=== PATIENT | female | born 1960 | race Caucasian/White ===

== ENCOUNTER → 2018-06-08 16:03 | Outpatient (CLI) | payer OTHER, SELFPAY ==
[2018-06-08 17:08] LABS: Absolute Lymphocyte Count 1.79 X10^3/ul (0.83-4.51); Absolute Neutrophil Count 5.6 X10^3/uL (2.0-7.7); Basophil# 0.03 X10^3/uL; Basophil% 0.3 % (0-1); Eosinophil# 0.36 X10^3/uL; Eosinophils% 4.1 % (0-5); Hematocrit 37.9 % (37-47); Lymphocyte # 1.79 X10^3/ul (4.0); Lymphocyte % 20.5 % (19-41); Mean Corp Hgb Conc 31.7 g/gl (32-36); Mean Corpuscular Hgb 29.5 pg (27.0-32.0); Mean Corpuscular Volume 93.1 fL (81-99); Mean Platelet Vol. 8.8 fl (6.2-12.0); Monocyte# 0.93 X10^3/uL; Monocyte% 10.7 % (0-10); Neutrophil % 64.3 % (47-70); Platelet Count 375 K/mm3 (150-450); RBC Distribution Width CV 13.7 % (11.6-14.6); RBC Distribution Width SD 46.1 fl (35.1-43.9); Red Blood Count 4.07 M/mm3 (4.2-5.4); White Blood Count 8.7 K/mm3 (4.4-11.0)
[2018-06-08 17:11] LABS: POSITIVE COUNT NO; POSITIVE DIFFERENTIAL NO; POSITIVE MORPHOLOGY NO
[2018-06-08 17:22] LABS: Erythrocyte Sedimentation Rate 82 mm/hr (0-30)
[2018-06-08 18:13] LABS: AUTO B FLUID DILUENT BKGD CT WBC <0.1 RBC <0.01 (W<.1,R<.01); RBC /Synovial Fluid 0.043 10^6/uL (0); Viscosity / Synovial Fluid Sl. Viscous (HIGH)
[2018-06-08 18:15] LABS: Color / Synovial Fluid Pink (Pale Yellow); Source / Synovial Fluid LEFT KNEE
[2018-06-08 18:16] LABS: Appearance /Synovial Fluid Turbid (CLEAR)
[2018-06-08 20:13] LABS: Lymph 2 %; Neutrophil 98 % (0-25)
[2018-06-08 20:15] LABS: Body Fluid QC Type(s) BF1Q
[2018-06-09 15:36] LABS: Pathologist Comment Reviewed
== END ==
PROVIDERS: Visit Provider Specialist
DX: T84.84XA Pain due to internal orthopedic prosthetic devices, implants and grafts, initial encounter (principal); Z96.652 Presence of left artificial knee joint
CPT/HCPCS: 36415; 85025; 85652; 86140; 87015; 87070; 87075; 87077; 87101; 87116; 87205; 87206; 89050; 89051

== ENCOUNTER 2018-06-23 11:24 | Inpatient (IN) | payer SELFPAY ==
[2018-06-16 11:31] VITALS: BP 130/65; PULSE 80; RESP 18; TEMP 36.4; O2SAT 94; BMI 42.5
--- NOTE | 2018-06-16 11:41 | EKG12_ITS ---
Test Reason : Blood Pressure : / mmHG Vent. Rate : 086 BPM Atrial Rate : 086 BPM P-R Int : 190 ms QRS Dur : 072 ms QT Int : 344 ms P-R-T Axes : 034 -03 002 degrees QTc Int : 411 ms Normal sinus rhythm Septal infarct , age undetermined , cannot be excluded Inferior infarct , age undetermined , cannot be excluded Abnormal ECG Confirmed by RUFINA MAXWELL, OLESYA ([id number]), science editor WARD DORANTES ([id number]) on 06/19/2018 1:24:53 PM Referred By: Cnoner Downey Confirmed By:OLESYA ALMARAZ MD
[2018-06-23] VITALS (15 sets, daily range): BP systolic 137–184; BP diastolic 67–94; PULSE 74–102; RESP 12–18; TEMP 36–36.6; O2SAT 91–99; BMI 42.5
[2018-06-23] MEDS: oxyCODONE HCl Cr 10 MG Tablet PO (11:58)
[2018-06-23] MEDS: Acetaminophen 500 MG Tablet 1000 MG PO ×2 (11:58→21:04)
[2018-06-23] MEDS: Lactated Ringers 1,000 ML 999 ML IV ×2 (12:18→16:30)
[2018-06-23] MEDS: Cefazolin 2 GM in 0.9% Normal Saline 100 ML IV (14:59)
[2018-06-23] MEDS: Vancomycin IV 1,000 MG/20 ML Vial 6000 MG OPERA.SITE (15:05)
--- NOTE | 2018-06-23 16:03 | PCM.OPRPT ---
Report of Operation Date of Procedure: 06/23/18 Pre-Operative Diagnosis: Left infected total knee arthroplasty, Propionibacterium Post-Operative Diagnosis: Left infected total knee arthroplasty, Propionibacterium Surgery/Procedure Performed:: 1. Explant placement of antibiotic spacer left knee. 2. Placement of nonbiodegradable antibiotic delivery system. Description of Surgical Findings:: Florid synovitis, cloudy fluid. Grossly loose implants. crotch piece baster: Michael Fleming Type of Anesthesia:: General Anesthesiologist: Martín Ngo Special Medications: 2 g Ancef after cultures were taken, 4.8 mg tobramycin, 2 g Ancef and 6 g vancomycin in cement mixture Estimated Blood Loss (mL): 150 Fluids Replaced: 1400 ml Description of Procedure: 57-year-old female with cultures positive with aspiration lab consistent with infection of the left knee. Some benefits of a two-stage revision were discussed with patient including but not limited to blood loss, DVTs, PEs, neurovascular damage, place, the risk of anesthesia including loss of life. We also discussed possibility of not clearing infection and needing revision spacer and possible amputation. Patient demonstrates an understanding was able to sign informed consent. Procedure: On the date of the procedure patient's left leg was marked in the preoperative area. Patient was taken back to the operating room with her transfer to the table in supine position. Anesthesia to control the C-spine airway remained controlled throughout the remainder of the procedure. Anesthesia was administered and all bony prominences identified well-padded. Tourniquet was placed in the left upper thigh. Left leg was then prepped in a sterile fashion with surgeon scrubbed. Upon entering the room the left leg was draped in a sterile working fashion. She was marked out using the previous incision and extending it proximally and distally 1 cm. Incision was made at the skin subcu tissue fat down the fascia. Once identified the medial retinaculum and made appropriate full-thickness flaps medially and laterally we made our arthrotomy. Once we entered the joint there was florid synovitis. Synovium was aggressively debrided and a complete synovectomy was performed starting in the medial gutter in the suprapatellar pouch and the lateral gutter. Suprapatellar pouch synovium was sent for culture. At this time the knee was flexed up and a bone tamp was used to remove the femoral component which was easily removed because it was loose. We then directed our attention towards the tibia where this was removed with a bone tamp again due to loosening of the implant. Membrane from behind both implants was sent for culture. At this time a cleanup cut was made on the distal femur and femoral cuts and proximal tibia. Posterior knee was debrided of synovium as well. Once a complete synovectomy was performed we directed our attention towards debridement of the bone. Bone tunnels were debrided in tibia was reamed to 11 mm and femur was reamed to 12 millimeters. Once this was performed and we had a peripherally debrided the knee we trialed the implants. The medial tibia was appropriate as well as a medium femur. At this time cement was mixed on the back table for a dowel favian around a Lim favian. While we are doing this informing the favian for the femur, the wound was copiously irrigated out with 6 L of normal saline. Once the favian was formed was placed in the femoral canal. The cement used to coat the favian was mixed with vancomycin, Ancef and tobramycin cement antibiotics. This is an intramedullary device designed to deliver antibiotics. At this time the remainder of the cemented antibiotics were mixed. The distal femur and proximal tibia implants were cemented into place and he was placed in extension. Wound was cultured up normal saline. The arthrotomy was then closed. #1 PDS was used to close the arthrotomy. Deep tissue layer was closed with #1 Vicryl skin layer was closed with 2-0 Vicryl and skin travis. At this time the knee could been from 0-30? with a spacer in place. Sterile dressing was placed. Prior to cementing the implants into place we did let the tourniquet down and use an aqua managed to obtain hemostasis. Once the dressing was placed patient was awakened by anesthesia and transferred to the PACU for recovery in stable condition. Operative plan: Infectious disease will be consulted. I started the patient on vancomycin and Ancef for the next 24 hours. She has a culture positive for Propionibacterium. We will plan on 6 weeks of antibiotics at a minimum with antibiotics being directed by infectious disease. I placed an order for the PICC line. Once antibiotics are set up patient will be able to be discharged home. My physician senior office support assistant sosa was a vital part of this case. He was important in appropriate retraction during the case, and protection of soft tissues during bony cuts. His intimate knowledge of the case and my steps aided in safe and expedient completion of the procedure as well as appropriate position of the leg during the case. He was also vital in assisting with closure under my direct supervision. Grafts/Implants Used: Ostial remedies knee spacer medium femur, medial tibia - Complications None - Admit VTE Documentation VTE Present on Admission: No VTE Mechan Device Prophylaxis: SCD's, Thigh High JULIENNE Braxton VTE Pharm Prophylaxis ordered?: Yes
--- NOTE | 2018-06-23 16:35 | RAD_ITS ---
STUDY: X-RAY - LEFT KNEE REASON FOR EXAM: Female, 57 years old. Postoperative, left knee. TECHNIQUE: 2 view(s) of the knee. COMPARISON: None. FINDINGS: Total arthroplasty. The prosthetic components appear to be appropriately seated and articulated. Expected postsurgical changes in the stranding soft tissues. RAD/Knee 1 or 2 Views IMPRESSION: Appropriate postsurgical features. Correlate with operative report. Electronically Signed: Trav Bojorquez, at 16:54 EDT Tel , Service support ,
[2018-06-23] MEDS: Scopolamine 1mg/72hr Patch 1 PATCH TD (16:55)
[2018-06-23 18:00] LABS: Creatinine, Serum 0.63 mg/dL (0.55-1.02); EST Glomerular Filtration Rate 103 mL/min (>60); Est Glom Filt Rate - Afr Amer 125 mL/min (>60); Estimated Creatinine Clearance 99.51 ml/min
[2018-06-23] MEDS: Vancomycin IV 1,000 MG/200 ML BAG 200 MG IV (21:00)
[2018-06-23] MEDS: Senna/Docusate Sodium 1 Tablet 2 TABLET PO (21:05)
[2018-06-23] MEDS: Ondansetron 4 MG/2 ML Vial IV (21:38)
--- NOTE | 2018-06-23 22:25 | PCM.RX.CS ---
Consult Pharmacy has been consulted to manage selected antiobiotic: Vancomycin Type of Consult: New start Suspected Infection: Other Prior Doses of Antibiotics Received/Current Regimen: Medications Vancomycin HCl 750 mg/ Sodium (Chloride) 265 mls @ 265 mls/hr IV Q12H QUAN Discontinued Medications Vancomycin HCl (Vancomycin) 1,000 mg in 200 mls @ 200 mls/hr IV X1 ONE Stop: 06/23/18 17:59 Last Admin: 06/23/18 21:00 Dose: 200 mls/hr Labs: Creatinine 0.63 mg/dL (0.55-1.02) 06/23/18 17:15 Est GFR (MDRD) Af Amer 125 mL/min (>60) 06/23/18 17:15 Est GFR (MDRD) Non-Af 103 mL/min (>60) 06/23/18 17:15 Microbiology: Microbiology 06/16/18 11:48 Nasal Secretion Nasal Screen MRSA/MSSA (RAMIREZ) - Final Weight used for dosin.2 kg Estimated Creatinine Clearance: 99 Goal Trough: 10-15 mcg/mL Pharmacy Plan for Drug Dosing: Pharmacy Service will continue to monitor and adjust dosing as required. Follow-Up Labs: Trough Vancomycin Labs to be done on [date and time ordered]: 06/25/2018 @2787
[2018-06-23] MEDS: Cefazolin 1 GM/50 ML BAG IV (23:03)
[2018-06-23] MEDS: Lactated Ringers 1,000 ML 125 ML IV (23:03)
[2018-06-24 02:56] VITALS: BP 157/80; PULSE 71; RESP 16; TEMP 36.7; O2SAT 96
[2018-06-24] MEDS: Ketorolac 15 MG/ML Vial IV (04:14)
[2018-06-24] MEDS: Acetaminophen 500 MG Tablet 1000 MG PO ×3 (05:46→21:23)
[2018-06-24] MEDS: Rivaroxaban 10 MG Tablet PO (05:47)
[2018-06-24] MEDS: Cefazolin 1 GM/50 ML BAG IV (06:02)
[2018-06-24 06:09] LABS: Hematocrit 31.6 % (37-47); Hemoglobin 10.2 g/dl (12.0-15.0); Mean Corp Hgb Conc 32.3 g/gl (32-36); Mean Corpuscular Hgb 30.5 pg (27.0-32.0); Mean Corpuscular Volume 94.6 fL (81-99); Mean Platelet Vol. 8.7 fl (6.2-12.0); Platelet Count 322 K/mm3 (150-450); RBC Distribution Width CV 12.9 % (11.6-14.6); RBC Distribution Width SD 42.8 fl (35.1-43.9); Red Blood Count 3.34 M/mm3 (4.2-5.4); White Blood Count 10.3 K/mm3 (4.4-11.0)
[2018-06-24 06:12] LABS: Anion Gap 10 (5-15); BUN 8 mg/dL (7-18); BUN/Creat Ratio 10.5 RATIO (10-20); Calcium,Total 8.3 mg/dL (8.5-10.1); Chloride 102 mmol/L (98-107); Creatinine, Serum 0.76 mg/dL (0.55-1.02); EST Glomerular Filtration Rate 83 mL/min (>60); Est Glom Filt Rate - Afr Amer 101 mL/min (>60); Estimated Creatinine Clearance 82.49 ml/min; Glucose 209 mg/dL (74-106); Potassium 4.1 mmol/L (3.5-5.1); Sodium Level 138 mmol/L (136-145)
[2018-06-24 06:14] LABS: Scan Indicated on CBC? Y/N NO
--- NOTE | 2018-06-24 07:35 | PCM.PN.ORT ---
Subjective: Patient resting in bed upon examination. No adverse overnight events. Patient denies any CP, SOB, dizziness/lightheadedness, or N/V. Pain is controlled on medications. I & D has been consulted for management of antibiotics. Patient will require PICC line and IV antibiotics for 6 weeks. Patient states she wishes to try to go home when ready. Will have case management help with discharge plans. Objective: VSS, Afebrile Patient able to PF/DF actively Dressing is C/D/I Sensation intact to saphenous, sural, superficial/deep peroneal, and tibial distribution bilateral Negative homans bilateral - Physical Exam General: Alert, Oriented x3, Cooperative, No apparent distress Vital Signs Temp Pulse Resp BP Pulse Ox 98.1 F 71 16 157/80 H 96 06/24/18 02:56 06/24/18 02:56 06/24/18 02:56 06/24/18 02:56 06/24/18 02:56 Oxygen Flow Rate (L/min) 3 Oxygen Delivery Method Room Air Weight: 63.219 kg Body Mass Index (BMI) 42.5 Intake and Output for Last 24 Hours 06/22/18 06/23/18 06/24/18 23:59 23:59 23:59 Intake Total 2500 / 2500 1148 / 1148 Output Total 900 / 900 Balance 2500 / 2500 248 / 248 Laboratory Tests Past 24 Hrs 06/23/18 06/24/18 06/24/18 17:15 05:40 05:40 WBC 10.3 RBC 3.34 L Hgb 10.2 L Hct 31.6 L MCV 94.6 MCH 30.5 MCHC 32.3 RDW 12.9 RDW Differential 42.8 Plt Count 322 MPV 8.7 Sodium 138 Potassium 4.1 Chloride 102 Carbon Dioxide 26.0 Anion Gap 10 BUN 8 Creatinine 0.63 0.76 Estim Creat Clear Calc 99.51 82.49 Est GFR (MDRD) Af Amer 125 101 Est GFR (MDRD) Non-Af 103 83 BUN/Creatinine Ratio 10.5 Glucose 209 H Calcium 8.3 L Medical Necessity - Tobacco Use Smoking Status: Never smoker Assessment/Plan 1. s/p explant and placement of antibiotic spacer left knee POD#1 2. Continue pain medications: Tylenol and Oxyir 3. DVT Prophylaxis: xarelto 4. PT/OT: PWB 25% left lower extremity 5. H & H: 10.2/31.6, asymptomatic 6. Infectious Disease Consult: will manage antibiotics, plan is for PICC line and 6 weeks IV antibiotics. Cultures are currently pending. 7. Encouraged Incentive spirometry 8. Disposition: Plan is for IV antibiotics and placement of PICC line. Case management will need to be involved to help with discharge planning. Patient wishes to try and go home when medically ready.
[2018-06-24] MEDS: Multivitamins,Therapeutic Tablet 1 TABLET PO (08:38)
[2018-06-24 08:40] VITALS: BP 145/72; PULSE 78; RESP 18; TEMP 36.8; O2SAT 95
[2018-06-24] MEDS: Senna/Docusate Sodium 1 Tablet 2 TABLET PO ×2 (10:34→21:23)
[2018-06-24] MEDS: Famotidine 20 MG Tablet PO (10:34)
[2018-06-24] MEDS: 0.9% NaCl Peripheral Flush Adult/Peds IV (10:34)
[2018-06-24 10:45] VITALS: PULSE 76
[2018-06-24] MEDS: oxyCODONE 5 MG Tablet PO ×3 (10:48→19:37)
--- NOTE | 2018-06-24 11:55 | CON.PCM_ITS ---
Problem List (1) Infected prosthetic knee joint Status: Acute Reason for Consult: pji Consulted by: Dr. Downey History of Present Illness: The patient is a 57 year old F with L TKA in 11/2017 who has had pain with weight bearing since the surgery. No redness, warmth, drainage. Mild chills in the spring. No recent abx. Had aspiration 06/08 which showed purulence, but neg cxs. Taken for spacer placement 06/23, pain about 5/10 now. Full ROS performed and neg except as noted above. - Medical History Surgical History: reviewed Allergies/Adverse Reactions: Allergies No Known Allergies Allergy (Verified 06/16/18 11:16) Home Medications: Ambulatory Orders Medication Instructions Recorded Multivitamin [Daily Multiple 1 each PO DAILY 04/25/17 Vitamin] Acetaminophen [Tylenol] 1,000 mg PO Q8 06/16/18 - Social History Tobacco Use: non-smoker Vital Signs Temp Pulse Resp BP Pulse Ox 98.3 F 76 18 145/72 H 95 06/24/18 08:40 06/24/18 10:45 06/24/18 08:40 06/24/18 08:40 06/24/18 08:40 Oxygen Flow Rate (L/min) 3 Oxygen Delivery Method Room Air Weight: 63.219 kg Body Mass Index (BMI) 42.5 Microbiology Past 72 Hours 06/23/18 14:57 Wound Culture - Preliminary Tissue - Knee No growth-Final to follow 06/23/18 14:57 Wound Culture - Preliminary Tissue - Knee No growth-Final to follow 06/23/18 14:57 Wound Culture - Preliminary Tissue - Knee No growth-Final to follow Laboratory Tests Past 24 Hrs 06/23/18 06/24/18 06/24/18 17:15 05:40 05:40 WBC 10.3 RBC 3.34 L Hgb 10.2 L Hct 31.6 L MCV 94.6 MCH 30.5 MCHC 32.3 RDW 12.9 RDW Differential 42.8 Plt Count 322 MPV 8.7 Sodium 138 Potassium 4.1 Chloride 102 Carbon Dioxide 26.0 Anion Gap 10 BUN 8 Creatinine 0.63 0.76 Estim Creat Clear Calc 99.51 82.49 Est GFR (MDRD) Af Amer 125 101 Est GFR (MDRD) Non-Af 103 83 BUN/Creatinine Ratio 10.5 Glucose 209 H Calcium 8.3 L - Other Studies Radiology: [] Other Studies: [] Route of nutrition/ use of supplements: [] Nutritional Intake: [] IV Site: [] Rodriguez Catheter: [] - Assessment/Plan Antibiotics: [] Assessment/Plan: [] L knee PJI - had aspiration done 06/08, cx neg at 14 days. Per ortho note, pt with P.acnes, but no (+) cxs in [place] or [place] system that I can see. On vanc. Now s/p spacer placement 06/23. Plan on picc and 6 week course of iv vanc. Will follow, thank you, d/w case monitor. Wrote rx for labs and abx with home health to be arranged.
--- NOTE | 2018-06-24 13:00 | CASEMGMT ---
SEE JOSH BARNES ASSESS LINK: D/C plan: Home with [facility]--custodial for IV antibiotics. Intro role to JOSH BARNES. Pt sitting up in recliner chair. Awake/alert/oriented. Several family members in room with pt. Pt reports she lives with her sister. Pt wishes to discharge home with [facility] for IV antibiotics. Pt reports she had to assist another sister with administering IV antibiotics in the past and is agreeable to learning how to administer them to herself. Pt also reports she has a lot of family support. Pt states has no preference of [facility] agency. Discussed Adv Directives with pt & pt voices interest in talking with [facility]. Pt given Adv Directive packet and referral made with [facility]. No DME needs identified. CM to to follow for discharge planning needs that may arise. Cesar CARDOSON JOSH BARNES
--- NOTE | 2018-06-24 14:58 | CASEMGMT ---
JOSH BARNES NOTE: Clinical Referral faxed to [facility] requesting they complete Home Health Referral ([facility] cannot accept pt). Call to [facility] to notify of referral. Pt has [facility] Benefits. Copy of certification card included in packet. Call back information given for Allan MORENO CM today, and Sanju MORENO CM for , 06/25/18. Allan CARDOSON M
[2018-06-24 15:36] VITALS: BP 140/59; PULSE 80; RESP 18; TEMP 37; O2SAT 94
[2018-06-24 21:04] VITALS: BP 135/51; PULSE 83; RESP 16; TEMP 36.9; O2SAT 96
[2018-06-25] MEDS: oxyCODONE 5 MG Tablet PO ×4 (00:12→13:52)
[2018-06-25 05:00] VITALS: BP 157/89; PULSE 91; RESP 91; TEMP 36.3; O2SAT 95
[2018-06-25] MEDS: Acetaminophen 500 MG Tablet 1000 MG PO ×2 (05:15→13:51)
[2018-06-25] MEDS: Rivaroxaban 10 MG Tablet PO (05:16)
[2018-06-25] MEDS: 0.9% NaCl Peripheral Flush Adult/Peds IV ×3 (05:59→13:55)
[2018-06-25 06:31] LABS: Hematocrit 33.3 % (37-47); Hemoglobin 10.6 g/dl (12.0-15.0); Mean Corp Hgb Conc 31.8 g/gl (32-36); Mean Corpuscular Hgb 30.4 pg (27.0-32.0); Mean Corpuscular Volume 95.4 fL (81-99); Mean Platelet Vol. 8.6 fl (6.2-12.0); Platelet Count 353 K/mm3 (150-450); RBC Distribution Width CV 13.4 % (11.6-14.6); RBC Distribution Width SD 44.3 fl (35.1-43.9); Red Blood Count 3.49 M/mm3 (4.2-5.4); White Blood Count 10.4 K/mm3 (4.4-11.0)
[2018-06-25 06:37] LABS: Scan Indicated on CBC? Y/N NO
--- NOTE | 2018-06-25 09:06 | PCM.PN.ORT ---
Patient Problems: Active and Suspected Problems Infected prosthetic knee joint (Acute) Subjective: The patient was evaluated while in physical therapy. Patient denies any chest pain, shortness of breath, dizziness, lightheadedness, nausea or vomiting, or calf pain. Pain is controlled on medications. No adverse overnight events. Infectious disease has seen the patient and patient will use IV vancomycin for 6 weeks. Patient will be following up with infectious disease to follow antibiotics. Plan is for patient to get home health in case management is working on discharge planning. Objective: Vital signs stable and afebrile. Patient is able to plantarflex and dorsiflex actively. Sensation is intact to light touch to saphenous, sural, superficial and deep peroneal, and tibial distribution. Dressing is clean dry and intact. Negative Homans bilaterally, negative signs and symptoms of DVT. - Physical Exam General: Alert, Oriented x3, Cooperative, No apparent distress Vital Signs Temp Pulse Resp BP Pulse Ox 97.4 F L 91 91 H 157/89 H 95 06/25/18 05:00 06/25/18 05:00 06/25/18 05:00 06/25/18 05:00 06/25/18 05:00 Oxygen Flow Rate (L/min) 3 Oxygen Delivery Method Room Air Weight: 63.219 kg Body Mass Index (BMI) 42.5 Intake and Output for Last 24 Hours 06/23/18 06/24/18 06/25/18 23:59 23:59 23:59 Intake Total 2500 / 2500 7 / 2037 721 / 721 Output Total 1900 / 1900 250 / 250 Balance 2500 / 2500 137 / 137 471 / 471 Microbiology Past 72 Hours 06/23/18 14:57 Gram Stain - Final Tissue - Knee Wound Culture - Preliminary No growth-Final to follow Anaerobic Culture - Preliminary No growth in 48 hours. 06/23/18 14:57 Gram Stain - Final Tissue - Knee Wound Culture - Preliminary No growth-Final to follow Anaerobic Culture - Preliminary No growth in 48 hours. 06/23/18 14:57 Gram Stain - Final Tissue - Knee Wound Culture - Preliminary No growth-Final to follow Anaerobic Culture - Preliminary No growth in 48 hours. Laboratory Tests Past 24 Hrs 06/25/18 06:10 WBC 10.4 RBC 3.49 L Hgb 10.6 L Hct 33.3 L MCV 95.4 MCH 30.4 MCHC 31.8 L RDW 13.4 RDW Differential 44.3 H Plt Count 353 MPV 8.6 Medical Necessity - Tobacco Use Smoking Status: Never smoker Assessment/Plan All Active Problems Infected prosthetic knee joint (Acute) 1. s/p explant and placement of antibiotic spacer left knee POD#2 2. Continue pain medications: Tylenol and Oxyir 3. DVT Prophylaxis: xarelto 4. PT/OT: PWB 25% left lower extremity 5. H & H: 10.6/33.3, asymptomatic 6. Infectious Disease Consult: PICC line has been placed and patient has prescription for IV vancomycin for 6 weeks postoperatively. Patient will need follow-up with Dr. Chester in 2-3 weeks. Patient will need weekly BMP, CBC, ESR, vancomycin trough which will be followed by Dr. Chester. 7. Encouraged Incentive spirometry 8. Disposition: Orthopedically stable, plan will be for discharge home today with home health. Patient has prescription for IV antibiotics. Patient will follow-up per postop instructions. Prescriptions are attached to chart.
--- NOTE | 2018-06-25 09:14 | PCM.DC.TKR ---
Discharge Diet: No Restrictions Discharge Activity: May Not Drive May shower in (days): 2 Ice area for (Minutes): 20 - Every 1-2 hours while awake Weight Bearing Status: Partial weight bearing - 25% weightbearing left lower extremity Elevate: Operative Extremity Additional Activity Instructions:: Wear Rico Wraps for 2 weeks after your surgery. Call your doctor if your incision/area has: Continuous Slow Oozing, Sudden Increased Bleeding, Increased Pain/ Swelling, Increased Redness, Foul Smelling Discharge Call your doctor if you observe: Fever of 101 or Higher, Coldness, Increased Pain, Numbness or Tingling, Change in Color, Calf discomfort, Uncontrolled pain Remove Dressing in (days):: 3 - Okay to remove dressing on June 28, 2018 Additional Instructions: Follow [facility] postop instructions Do not submerge incision under water for 4 weeks postoperatively Antibiotics will be followed by Dr. Chester, patient will need to follow-up in 2-3 weeks with him. Allergies/Adverse Reactions: Allergies No Known Allergies Allergy (Verified 06/16/18 11:16) Medications to take at Discharge Multivitamin [Daily Multiple Vitamin] 1 each PO DAILY 04/25/17 Acetaminophen [Tylenol] 1,000 mg PO Q8 #90 tab 06/25/18 Oxycodone [Oxyir] 5 - 10 mg PO Q4H PRN PRN 6 Days #80 tab 06/25/18 Rivaroxaban [Xarelto] 10 mg PO DAILY@0600 #12 tab 06/25/18 Senna/Docusate Sodium [Senokot-S] 2 tab PO BID #20 tab 06/25/18 Vancomycin IV 750 mg IV Q12H vial 06/25/18 The following prescriptions were given: Oxycodone [Oxyir] 5 - 10 mg PO Q4H PRN PRN 6 Days #80 tab PRN Reason: Mod-Severe Pain (4-09/02) Acetaminophen [Tylenol] 1,000 mg PO Q8 #90 tab Rivaroxaban [Xarelto] 10 mg PO DAILY@0600 #12 tab Senna/Docusate Sodium [Senokot-S] 2 tab PO BID #20 tab Primary Care Physician: Aishwarya Villalobos MD [Primary Care Provider] - Test Results: Test results from this visit will be discussed in further detail at your follow-up appointment, if applicable. Please Follow Up With: Michael Fleming PA-C When: 07/06/18 @ 3:00 pm Please Follow Up With: Travis Chester MD When: Will need follow up in 2-3 weeks for management of antibiotics
[2018-06-25 09:50] VITALS: BP 175/79; PULSE 88; RESP 16; TEMP 36.8; O2SAT 98
[2018-06-25] MEDS: Senna/Docusate Sodium 1 Tablet 2 TABLET PO (09:52)
[2018-06-25] MEDS: Multivitamins,Therapeutic Tablet 1 TABLET PO (09:53)
[2018-06-25] MEDS: Famotidine 20 MG Tablet PO (09:53)
[2018-06-25 10:10] LABS: Vancomycin, Trough Level 9.8 ug/mL (5.0-15.0)
--- NOTE | 2018-06-25 11:19 | CASEMGMT ---
Addendum entered by Ale Mullins 06/25/18 14:21: SW met w/pt, assisted pt on completing POA forms. SW gave pt original and copies for her sisters who she put as POA and alternates, and copy placed on chart. ROBLES Albert, AFFILIATE MARKETING SPECIALIST Original Note: SW attempted to see pt this morning regarding living will/POA, pt has been in the restroom. SW will attempt to see pt this afternoon as time allows. ROBLES Albert, AFFILIATE MARKETING SPECIALIST
--- NOTE | 2018-06-25 11:20 | NURSING ---
MOLLY Carrillo asked this RN to check with pharmacy regarding the earliest time the next dose of vancomycin could be administered. Lillian in pharmacy said based on vanco trough level this morning, she would not give the next dose any earlier than 1900. this was reported to JOSH Carrillo-MOLLY.
--- NOTE | 2018-06-25 12:23 | PHA.PHARE_ITS ---
Consult Pharmacy has been consulted to manage selected antiobiotic: Vancomycin Type of Consult: Follow-up Suspected Infection: Other Prior Doses of Antibiotics Received/Current Regimen: VANCOMYCIN 750MG IV q12HR: 06/24 @0839, 06/24 @2122 Labs: Sodium 138 mmol/L (136-145) 06/24/18 05:40 Potassium 4.1 mmol/L (3.5-5.1) 06/24/18 05:40 Chloride 102 mmol/L (98-107) 06/24/18 05:40 Carbon Dioxide 26.0 mmol/L (21.0-32.0) 06/24/18 05:40 Anion Gap 10 (5-15) 06/24/18 05:40 BUN 8 mg/dL (7-18) 06/24/18 05:40 Creatinine 0.76 mg/dL (0.55-1.02) 06/24/18 05:40 Est GFR (MDRD) Af Amer 101 mL/min (>60) 06/24/18 05:40 Est GFR (MDRD) Non-Af 83 mL/min (>60) 06/24/18 05:40 BUN/Creatinine Ratio 10.5 RATIO (10-20) 06/24/18 05:40 Glucose 209 mg/dL (74-106) H 06/24/18 05:40 Vancomycin Trough 9.8 ug/mL (5.0-15.0) 06/25/18 09:25 Microbiology: Microbiology 06/23/18 14:57 Tissue - Knee Gram Stain - Final 06/23/18 14:57 Tissue - Knee Wound Culture - Preliminary No growth-Final to follow 06/23/18 14:57 Tissue - Knee Anaerobic Culture - Preliminary No growth in 48 hours. 06/23/18 14:57 Tissue - Knee Gram Stain - Final 06/23/18 14:57 Tissue - Knee Wound Culture - Preliminary No growth-Final to follow 06/23/18 14:57 Tissue - Knee Anaerobic Culture - Preliminary No growth in 48 hours. 06/23/18 14:57 Tissue - Knee Gram Stain - Final 06/23/18 14:57 Tissue - Knee Wound Culture - Preliminary No growth-Final to follow 06/23/18 14:57 Tissue - Knee Anaerobic Culture - Preliminary No growth in 48 hours. 06/16/18 11:48 Nasal Secretion Nasal Screen MRSA/MSSA (RAMIREZ) - Final Goal Trough: 10-15 mcg/mL Pharmacy Plan for Drug Dosing: The patient had a trough drawn which resulted in a value of 9.8 )12hrs from last dose administered). Per progress notes, it appears the patient is improving , so will not adjust vancomycin at this time. Will also not order a trough, as the patient is to likely be discharged today per progress notes/nursing. Will continue vancomycin via home infusions. PLAN/RECOMMENDATION 1. Continue vancomycin 750mg IV Q12hrs 2. Pharmacy Service will continue to monitor and adjust dosing as required.
--- NOTE | 2018-06-25 14:00 | CASEMGMT ---
JOSH BARNES called Jayashree at [facility] regarding home IV ATB. Jayashree was not able to find HHC for patient. JOSH BARNES called [place], [facility], and [facility] and they are not able to accept the patient. BERNIE BARNES called and spoke with Jenniffer at [facility] and updated that CM is having trouble finding HHC for patient and they are willing to accept the patient. JOSH BARNES asked floor nurse Sherine RN to see with pharmacy if patient would be able to receive next dose earlier. Per Sherine, pharmacy states that next does could be at 7:00pm. RN CM updated [facility] and [facility] regarding next dosing time of 7:00pm. RN CM updated patient regarding IV ATB and HHC. Patient is discharging with Xarelto and Xarelto card provided but patient does not qualify. SW updated to assist with RX assist setup. CM will continue to follow-this patient and plan for a safe discharge.
--- NOTE | 2018-06-25 14:40 | PN.ID_ITS ---
Patient Problems: Active and Suspected Problems Infected prosthetic knee joint (Acute) Subjective: Feeling fine, no fever, no n/v/d, no problems with picc. - Physical Exam General: Alert, Cooperative, No apparent distress Lungs: Clear to auscultation, Normal air movement Cardiovascular: Regular rate, Regular Rhythm Abdomen: Soft, Non Tender, Non-Distended Skin: - - LLE wrapped Vital Signs Temp Pulse Resp BP Pulse Ox 98.2 F 88 16 175/79 H 98 06/25/18 09:50 06/25/18 09:50 06/25/18 09:50 06/25/18 09:50 06/25/18 09:50 Oxygen Flow Rate (L/min) 3 Oxygen Delivery Method Room Air Weight: 63.219 kg Body Mass Index (BMI) 42.5 Intake and Output for Last 24 Hours 06/23/18 06/24/18 06/25/18 23:59 23:59 23:59 Intake Total 2500 / 2500 2037 / 2037 1257 / 1257 Output Total 1900 / 1900 250 / 250 Balance 2500 / 2500 137 / 137 1007 / 1007 Microbiology Past 72 Hours 06/23/18 14:57 Gram Stain - Final Tissue - Knee Wound Culture - Preliminary No growth-Final to follow Anaerobic Culture - Preliminary No growth in 48 hours. 06/23/18 14:57 Gram Stain - Final Tissue - Knee Wound Culture - Preliminary No growth-Final to follow Anaerobic Culture - Preliminary No growth in 48 hours. 06/23/18 14:57 Gram Stain - Final Tissue - Knee Wound Culture - Preliminary No growth-Final to follow Anaerobic Culture - Preliminary No growth in 48 hours. Laboratory Tests Past 24 Hrs 06/25/18 06/25/18 06:10 09:25 WBC 10.4 RBC 3.49 L Hgb 10.6 L Hct 33.3 L MCV 95.4 MCH 30.4 MCHC 31.8 L RDW 13.4 RDW Differential 44.3 H Plt Count 353 MPV 8.6 Vancomycin Trough 9.8 Medical Necessity - Tobacco Use Smoking Status: Never smoker Route of nutrition/ use of supplements: [] Nutritional Intake: [] IV Site: [] Rodriguez Catheter: [] - Assessment/Plan Antibiotics: [] Assessment/Plan: [] L knee Propionibacterium PJI - had aspiration done 06/08, cx with P. propionicum. On vanc. Vanc trough at goal. Now s/p spacer placement 06/23. Plan on picc and 6 week course of iv vanc. Stop date 08/04/18. ID follow up with me in 4 weeks at wound care center. D/w family service caseworker.
[2018-06-25 14:51] VITALS: BP 125/98; PULSE 91; RESP 18; TEMP 36.7; O2SAT 94
--- NOTE | 2018-06-25 15:34 | CASEMGMT ---
Social Work Note Pt needs Rx assist program for Xarelto. SW put Rx assist program order in computer and tubed copy to pharmacy. 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
== END 2018-06-25 15:56 | disposition home health service (06) | DRG 465 ==
LOC: ACINP 11:25 → MS3 15:17
PROVIDERS: Admitting Provider Specialist; Visit Provider Specialist
PROC: 0SPD0JZ Removal of Synthetic Substitute from Left Knee Joint, Open Approach (ICD-10-PCS; CPT 27488; principal; 2018-06-23 14:05)
DX: T84.54XA Infection and inflammatory reaction due to internal left knee prosthesis, initial encounter (principal); T84.033A Mechanical loosening of internal left knee prosthetic joint, initial encounter; B96.89 Other specified bacterial agents as the cause of diseases classified elsewhere; Y83.1 Surgical operation with implant of artificial internal device as the cause of abnormal reaction of the patient, or of later complication, without mention of misadventure at the time of the procedure; Z96.652 Presence of left artificial knee joint; Z78.0 Asymptomatic menopausal state; I25.2 Old myocardial infarction; Z79.82 Long term (current) use of aspirin; Z79.01 Long term (current) use of anticoagulants; Z79.899 Other long term (current) drug therapy
CPT/HCPCS: 36415; 36569; 73560; 80048; 80202; 82565; 85027; 87015; 87070; 87075; 87081; 87102; 87116; 87205; 87206; 93005; 97116; 97162; 97165; 97530; 97535; C1776; J7040; J7050; J7120; A4216; J2405; J3260

== ENCOUNTER 2018-06-29 12:49 | Outpatient (RCR) | payer OTHER, SELFPAY ==
[2018-06-29 13:26] LABS: Hematocrit 33.5 % (37-47); Hemoglobin 10.6 g/dl (12.0-15.0); Mean Corp Hgb Conc 31.6 g/gl (32-36); Mean Corpuscular Hgb 30.4 pg (27.0-32.0); Mean Platelet Vol. 8.9 fl (6.2-12.0); Platelet Count 411 K/mm3 (150-450); RBC Distribution Width CV 13.9 % (11.6-14.6); RBC Distribution Width SD 46.1 fl (35.1-43.9); Red Blood Count 3.49 M/mm3 (4.2-5.4); White Blood Count 8.5 K/mm3 (4.4-11.0)
[2018-06-29 13:27] LABS: Scan Indicated on CBC? Y/N NO
[2018-06-29 13:33] LABS: Anion Gap 6 (5-15); BUN 9 mg/dL (7-18); BUN/Creat Ratio 14.1 RATIO (10-20); Chloride 105 mmol/L (98-107); Creatinine, Serum 0.64 mg/dL (0.55-1.02); EST Glomerular Filtration Rate 102 mL/min (>60); Est Glom Filt Rate - Afr Amer 123 mL/min (>60); Glucose 99 mg/dL (74-106); Potassium 3.7 mmol/L (3.5-5.1); Sodium Level 141 mmol/L (136-145)
[2018-06-29 13:35] LABS: Erythrocyte Sedimentation Rate 79 mm/hr (0-30)
[2018-06-29 13:38] LABS: Vancomycin, Trough Level 10.9 ug/mL (5.0-15.0)
--- NOTE | 2018-07-22 13:51 | PCM.PN.ID ---
Subjective: I am seeing Mrs. Roy in the wound care center clinic because of a diffuse erythematous rash that was noted roughly 4 days ago. She has been on parenteral vancomycin for roughly 4 weeks. The vancomycin was stopped because of the rash. She is currently denies any fevers. 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 Microbiological data from the surgery reviewed. 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 Propionibacterium was isolated from the intraoperative cultures. Patient did have a drug eruption with vancomycin. At this point I will switch to ceftriaxone 2 g IV daily which she will continue through August 04 I did talk to CSI who will change her antibiotic to daily ceftriaxone 2 g daily via her PICC.
== END 2018-07-24 23:59 ==
LOC: HHLAB 12:49
PROVIDERS: Visit Provider Internal Medicine Infectious Disease
DX: T84.7XXA Infection and inflammatory reaction due to other internal orthopedic prosthetic devices, implants and grafts, initial encounter (principal)
CPT/HCPCS: 80048; 80202; 85027; 85652

== ENCOUNTER → 2018-08-10 16:25 | Outpatient (CLI) | payer OTHER, SELFPAY ==
[2018-08-10 17:20] LABS: RBC /Synovial Fluid 0.009 10^6/uL (0); Synovial Fld Mononuclear WBC % 61.2 %; Synovial Fld Polynuclear WBC % 38.8 %
[2018-08-10 18:32] LABS: Lymph 9 %; Monocyte /Synovial Fluid 16 %; Neutrophil 75 % (0-25)
[2018-08-10 18:47] LABS: AUTO B FLUID DILUENT BKGD CT WBC <0.1 RBC <0.01 (W<.1,R<.01); Appearance /Synovial Fluid Sl Cl (CLEAR); Color / Synovial Fluid Yellow (Pale Yellow); Source / Synovial Fluid L KNEE; Viscosity / Synovial Fluid Sl. Viscous (HIGH)
[2018-08-10 19:06] LABS: Body Fluid QC Type(s) BF3Q
[2018-08-11 13:38] LABS: Pathologist Comment Reviewed
== END ==
PROVIDERS: Visit Provider Specialist
DX: T84.54XD Infection and inflammatory reaction due to internal left knee prosthesis, subsequent encounter (principal)
CPT/HCPCS: 87015; 87070; 87075; 87101; 87116; 87205; 87206; 89050; 89051

== ENCOUNTER 2018-09-23 11:09 | Inpatient (IN) | payer SELFPAY ==
[2018-09-07 12:39] VITALS: BP 154/78; PULSE 78; RESP 16; TEMP 36.6; O2SAT 97; BMI 43.4
--- NOTE | 2018-09-08 17:34 | HP.PCM_ITS ---
History and Physical DATE OF SURGERY: 09/23/2018 SCHEDULED PROCEDURE: Removal Antibiotic Spacer left knee with placement of Left Total Knee Arthroplasty HISTORY OF PRESENT ILLNESS: This is a 57-year-old female who had a left knee antibiotic spacer on June 23, 2018 secondary to a infected left total knee arthroplasty. Patient's primary left total knee arthroplasty was done December 09, 2017. Patient has been 25% weightbearing on the left knee. Patient has been doing well. She has responded well to antibiotics. Patient did initially have a reaction to her antibiotics. Her ESR was increased over the past couple checks but this coincides with the reaction to the antibiotics. Patient has had no redness or swelling of the knee. Patient has been comfortable after the surgery. After discussion with Dr. Conner Downey, the patient will proceed with a removal antibiotic spacer left knee with placement of left total knee arthroplasty. Patient has been followed postoperatively by infectious disease who has managed her antibiotics. Patient currently denies any chest pain, shortness of breath, fevers chills. Patient has no listed medical problems. REVIEW OF SYSTEMS: ROS: Const: Denies anorexia, change in appetite, fever, hard of hearing, vision problems and weight change. CV: Denies chest pain, heart murmur, irregular heartbeat and peripheral vascular disease. Resp: Denies asthma, cough, pneumonia, sleep apnea, SOB, tuberculosis and wheezing. GI: Reports heartburn, but denies constipation, diarrhea, difficulty swallowing, nausea, bloody stools and vomiting. : Urinary: denies incontinence. Musculo: Reports trouble walking, but denies leg swelling, limp and weakness. Skin: Denies Raynaud's, history of shingles and tattoo. Neuro: Reports numbness/tingling but denies ambulatory dysfunction, dizziness and tremor. Psych: Denies anxiety, depression, insomnia, mental illness and stress. Selwyn/Lymph: Denies anemia, bleeding/bruising tendency and past transfusion. Reviewed, no changes. PAST MEDICAL HISTORY: Advance Care Plan: No Advance Directives Effective Date: 10/30/2017 PMH: Medical Problems: None Accidents: None Surgical Hx: Hysterectomy - 1996 [facility] Hernia Repair - (11/2016) Knee Replacement Rt - (05/13/2017) [email or web address] Knee Replacement LT - (12/09/2017) [email or web address] Knee Antibiotic Spacer Placed - (06/23/2018) SAW @ [facility] Anesthesia Complications: None Assistive Devices: Glasses, Dentures Reviewed, no changes. 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 Personal Habits: Cigarette Use: Never Smoked Cigarettes.Alcohol: Denies use.Drug Use: Denies Use.Enjoy Exercising: Never Exercises. Reviewed, no changes. VITALS: Ht: 49 Wt: 145lb Wt k.772 BMI: 42.5 BP: 140/82 Pulse: 70 Resp: 16 T: 97.4 T: 36.3C ALLERGIES: Vicodin Benadryl MEDICATIONS: Vitamins 1 po qd, Tylenol Extra Strength 500 mg 2 by mouth every 8 hours PRE-OP EXAM: General appearance:NORMAL Other: Eyes: Conjunctivae and lids: NORMAL Pupils: ERR Ears, Nose, Mouth, and Throat: NORMAL Other: Inspection of lips, teeth and gums: NORMAL Other: Neck: Examination of neck: no masses noted. Respiratory: Assessment of respiratory effort: NORMAL Other: Auscultation of lungs: clear to auscultation no wheezes, rhonchi or rales. Cardiovascular: Auscultation of heart: regular rate and rhythm, no murmurs, gallops or rubs. Exam of carotid arteries: NORMAL Other: Gastrointestinal: Exam of abdomen: soft, nontender, nondistended bowel sounds present. PHYSICAL EXAMINATION: On exam patient is in wheelchair. She is able to put 50% weightbearing on the left lower extremity. Previous incision is without erythema. No significant e ffusion. Range of motion 0 of extension to 30 of flexion. Sensation intact to light touch. Neurovascularly intact. IMAGING STUDIES: Previous left knee x-rays reveal a stable well placed well aligned left knee antibiotic spacer. IMPRESSION: 1. Left knee antibiotic spacer PLAN: Dr. Downey did discuss and review with the patient all treatment options including surgical versus nonsurgical options. Patient does wish to proceed with the above-stated procedure. Potential risks, benefits, and complications of the procedure were discussed in detail including but not limited to , infection, nerve and blood vessel damage, persistent pain, numbness, tingling, paresthesias, blood clot, pulmonary embolism, and requirement for possible further surgery. The patient expressed full understanding and has no further questions for the doctor. Patient does agree to proceed with the above-stated procedure and has signed the surgery consent form. ___ I have re-examined the patient. There are no clinical changes since date of exam. ___ See progress notes for changes. ___ Dictated on admission Date: Time: Signature:
[2018-09-23] VITALS (15 sets, daily range): BP systolic 105–147; BP diastolic 69–99; PULSE 72–98; RESP 12–18; TEMP 36.4–37.4; O2SAT 93–100; BMI 43.4; BMI 44.2
[2018-09-23] MEDS: Celecoxib 200 MG Capsule 400 MG PO (11:53)
[2018-09-23] MEDS: oxyCODONE HCl Cr 10 MG Tablet PO (11:53)
[2018-09-23] MEDS: Acetaminophen 500 MG Tablet 1000 MG PO ×2 (11:53→22:23)
[2018-09-23] MEDS: Lactated Ringers 1,000 ML 999 ML IV ×2 (12:10→17:44)
[2018-09-23] MEDS: Scopolamine 1mg/72hr Patch 1 PATCH TD (12:37)
[2018-09-23] MEDS: Cefazolin 2 GM in 0.9% Normal Saline 100 ML IV (13:26)
--- NOTE | 2018-09-23 16:22 | PCM.OPRPT ---
Report of Operation Date of Procedure: 09/23/18 Pre-Operative Diagnosis: Left knee antibiotic spacer Post-Operative Diagnosis: Left knee antibiotic spacer Surgery/Procedure Performed:: Left total knee replacement. Removal of nonbiodegradable antibiotic delivery device Description of Surgical Findings:: Stable knee with good patella tracking, lateral release was performed grass cutter: Michael Fleming grass cutter: Dahiana Garcia Type of Anesthesia:: General Anesthesiologist: Mick Amado Special Medications: 2 g Ancef, 1 g TXA at incision, 1 g TXA closure, 10 mg Decadron, joint cocktail (5 mg Duramorph, 30 mL of 0.5% Ropivicaine, 1000 units of epinephrine, 30 mg of Toradol), 1 g Ancef after 2-1/2 hours incision time Specimen's removed: 3 separate specimens were sent to microbiology. Estimated Blood Loss (mL): 150 Fluids Replaced: 1700 ml crystalloid Description of Procedure: This 71-year-old female who had a Propionibacterium acnes infection. Previously had a explant and antibiotic spacer placed. Patient completed her IV antibiotic course. He continued to have labs are trended in a negative direction while on her antibiotic holiday. She did have a reaction to vancomycin. After patient was able to do well on her antibiotic holiday we discussed revision knee replacement and removal of the antibiotic spacer. Risks and benefits of the procedure were discussed the patient including but not limited to blood loss, DVTs, PEs, neurovascular damage, infection, continued infection, wound complications and general risk of anesthesia including loss of life. Patient demonstrated understanding was able to sign informed consent. Implants Femur: Size 1 TS left distal femoral component with 10 mm augments medially and laterally. And a 50 x 12 mm cemented stem Tibia: Size 1 tibial baseplate universal, 5 mm augments medially and laterally. 50 x 12 mm cemented stem Polyethylene: TS size 1, 13 mm Patella: 27 mm symmetric patella Procedure: On the date of the procedure patient's left leg was marked in the preoperative area. Patient was taken back to the operating room where she was transferred to the table in the supine position. Anesthesia assumed control the C-spine and airway. Anesthesia then administered anesthetic and remained to control the C-spine airway throughout the remainder the procedure. Tourniquet was placed in the left thigh. Starting with tourniquet placement the patient size did affect the case. Tourniquet was placed high on the thigh as possible with left little room to approximately extend our incision at the knee. Left leg was then prepped in a sterile fashion and the surgeon scrubbed. Upon reentering the room the left lower extremity was draped in a standard orthopedic fashion. The knee can only be flexed to about 45 degrees. Timeout was cooperative and agreed upon the side, the site, and the procedure to be performed, patient's identity and by skin. Previous incision was marked out with plans to extend the excision 1 cm minimally proximally and distally. Esmarch bandage was used to exsanguinate the extremity and the knee was flexed as much as it could be flexed tourniquet was placed up to 250 mmHg. Incision was taken down through skin subtenons tissue fat down the fascia with the knee in 45 degrees flexion. Became difficult to hold the extremity. Throughout the case the extremity was repositioned multiple times due to the patient's short stature and girth of her leg. Medial and lateral soft tissue flaps were developed and the previous arthrotomy was identified. Sharp dissection was then taken down for a medial parapatellar arthrotomy. An aggressive synovectomy was then commenced. We started in the suprapatellar pouch and proceed to the medial lateral gutters. Once the synovectomy was performed Gelpi's were placed in the joint open the joint. Based on the short nature of the leg visualization was initially difficult however when contractures were released were able to have good visualization. This did take extra time. Osteotome was used to break up the cement pacer. Cement was removed in piecemeal fashion. Once removed the spacer the dowels were removed from the intramedullary canal both the tibia and femur. Once this was done membranes were removed from femur and tibia. The synovium and these membranes were sent for culture. The remainder of the synovectomy was performed in the posterior knee and posterior lateral and posterior medial knee. Once this was completed a bur was used to remove any further membrane from the proximal distal femur. Cleanup cut was made on the tibia and cleanup cuts were made on the femur. Knee was placed in extension and 6 L of normal saline were irrigated throughout the wound. Once wound was thoroughly debrided and irrigated out we commenced with our construction of the knee. During her previous cleanup cut on the tibia the intramedullary reamers were used to ream out the tibial canal and the tibia was prepped. A size 1 tibial baseplate was selected. Based on the bony defect a 5 mm augment was selected medially and laterally. This trial was put into place and fit well. Based on the bone loss we did not have a good friction fit on the tibia fit loosely. It was removed and our attention was then directed towards the femur. Intramedullary canal was reamed out. Based on the patient's anatomic deformity we used a short stem guide in order to cut the distal femur to make cleanup cuts. Once this was completed the TCG guide from [employer] was put into place and distal femoral cleanup cuts made showing that the medial and lateral augments required 10 mm augments. Posteriorly no augments were required. The trial tibia was used to set the rotation of the femoral implant making it parallel to the perpendicular cut of the tibia. Once this was completed the trial tibial and femoral components were put into place. A 13 mm polyethylene gave us an appropriate fit in flexion and extension. Patella tracked reasonably well. Trial components were removed. Tourniquet was let down at this time. Hemostasis was obtained using aqua Vee bipolar sealer. Implants were opened and assembled on the back table. Cement restrictor was replaced. Once a cement restrictor was replaced trial components were once again placed to make sure that we could place him at this measure. Patella was everted and due to the thin nature of the patella which is buried the surface and then used a 27 mm polyethylene drilling the peg. Once this was completed and the wound was copiously out normal saline 1 more time bone ends were dried. The knee was flexed and the tourniquet was placed back up to 250 mmHg. Bone ends were once again dried knee was flexed and one batch of cement was mixed and the tibia was cemented into place. Based on the noted fit the tibia was held into place while the cement cured. Once the tibia was appropriately put into place a trial polyethylene component was placed and cement was mixed for the femur and patella. Once the cement was adequately mixed the canal was pressurized and the distal femoral component was cemented into place. Based on the bone of the leg and the patient size we could only place 50 mm stem on the femur. He was placed in extension patella was everted bone and was dried and patella was cemented into place. Once the cement had cured knee was taken through range of motion with 13 mm TS polyethylene trial. This gave us a good stable knee. Patella tracked slightly laterally. Aggressive adhesion releases were performed. A small superficial lateral release was performed. Patella then tracked better with range of motion. Knee remained stable with range of motion. 13 mm TS polyethylene final component was opened central peg was placed after the locking mechanism was engaged. Wound was logan eat out normal saline. Arthrotomy was closed using #2 FiberWire in the superior lateral corner with #1 Vicryl for the remainder of the repair. 2-0 Vicryl for skin closure with final skin closure done with skin travis. Sterile dressing was placed. Compressive dressing was placed. Patient was awakened by anesthesia transferred the PACU for recovery. During the course of the procedure the physician economist research assistant played a vital role. His intimate knowledge of my steps in the procedure aided in safe and expedient completion of the procedure. The PA played a vital rolls in positioning particularly in obtaining the appropriate positioning of the sacral bump. The PA was also vital in the retraction of soft tissues during the exposure and especially the femoral work as this is a vital part of the procedure to prevent complications and fractures. The PA was also vital and protecting soft tissues during times of bony cuts and reaming. He also played a vital role in closure with my direct supervision. The PA was also important during reduction and dislocation of the joint and trials intraoperatively. Should be noted that during the surgery due to difficulties with controlling the extremity due to the size of the patient a [employer] needed to scrub into the case. This speaks of the complexity of this case as the patient has skeletal dysplasia. Postop plan: She will be weightbearing as tolerated. We will place her on doxycycline as we follow cultures for 1 week. She will have Xarelto for DVT prophylaxis. We will hold range of motion 0-90 degrees for the first 2 weeks then she can have range of motion as tolerated after that. Grafts/Implants Used: Joaquin triathlon, total stabilized knee - Complications None - Admit VTE Documentation VTE Present on Admission: No VTE Mechan Device Prophylaxis: SCD's, Thigh High JULIENNE Hose VTE Pharm Prophylaxis ordered?: Yes
--- NOTE | 2018-09-23 17:10 | RAD_ITS ---
STUDY: X-RAY - LEFT KNEE REASON FOR EXAM: Female, 58 years old. Postoperative evaluation of left total knee replacement. TECHNIQUE: 2 view(s) of the knee. COMPARISON: Prior left knee radiographs of June 23, 2018 FINDINGS: The femoral and tibial methacrylate structures have been removed since the prior exam and there has been placement of a femoral and tibial hardware replacement remaining in anatomic alignment and appearing to be well seated in the femur and tibia. The patella has been resurfaced and is anatomically located. Normal proximal tibiofibular articulation. Normal postoperative soft tissue changes. Anterior incision closed with travis. RAD/Knee 1 or 2 Views IMPRESSION: Further revision of the left total knee replacement as described above. No untoward bone, joint or hardware findings. Electronically Signed: Tori Benjamin MD at 17:56 EDT , Service support ,
--- NOTE | 2018-09-23 20:10 | NURSING ---
Pt sleeping, arouses to voice. Encourage to use incentive spirometer, pt fall asleep easily, but arouses to voice.
--- NOTE | 2018-09-23 20:22 | NURSING ---
Text sent to [phone] for hospitalist consult. Advised that pt has low respirations at times and is on a venti mask. Joanie MORENO and this RN present in room. Pt seems to be waking up a little more but very drowsy.
--- NOTE | 2018-09-23 20:24 | NURSING ---
Pt is on bedpan. Still very drowsy but does wake up. Talking to staff. Venti mask maintained.
--- NOTE | 2018-09-23 20:48 | PCM.PN.HOSP ---
Subjective: Hospitalist Consult Note. Patient had a Removal of Antibiotic Spacer left knee with placement of Left Total Knee Arthroplasty. After the procedure patient was noted to have decreased respiration and was placed on 31% Venturi mask with 6 L of oxygen at rest she was satting close to 100%. Hospitalist service is consulted because of decreased respiration. Patient denies any symptoms at this time. Her family reports that at home she snores but denies any apnea movements. Vitals/I&O's: Vital Signs Temp Pulse Resp BP Pulse Ox 97.6 F L 80 18 136/93 H 96 09/23/18 19:06 09/23/18 19:06 09/23/18 19:06 09/23/18 19:06 09/23/18 19:45 Oxygen Flow Rate (L/min) 3 Oxygen Delivery Method Venturi Mask Weight: 67.4 kg Body Mass Index (BMI) 43.4 Intake and Output for Last 24 Hours 09/21/18 09/22/18 09/23/18 23:59 23:59 23:59 Intake Total 2500 / 2500 Balance 2500 / 2500 General: Alert, Oriented x3, Lethargic - Occasionally falls to sleep well conversation is ongoing. HEENT: Atraumatic, PERRLA, EOMI, Normocephalic Neck: Supple, No JVD, Negative Carotid Bruits Lungs: Clear to auscultation, Normal air movement Cardiovascular: Regular rate - at the time of my examination. Reportedly she has episodes of bradypnea., No murmurs Abdomen: Bowel Sounds Present, Soft, Non Tender Extremities: No edema, Capillary Refill Less than 3 Seconds Skin: No rashes, No breakdown Musculoskeletal: No Tenderness to Palpation of Joints or Extremities - Left knee with ice. Neurological: Cranial nerves II-XII grossly intact Psych/Mental Status: Normal Affect, Appropriate Current Medications Acetaminophen (Tylenol) 1,000 mg PO Q8 [facility] Famotidine (Pepcid) 20 mg PO DAILY [facility] Cefazolin Sodium () 1 gm in 50 mls @ 150 mls/hr IV Q8 QUAN Stop: 09/24/18 06:19 Lactated Ringer's () 1,000 mls @ 125 mls/hr IV .Q8H [facility] Last Admin: 09/23/18 19:44 Dose: Not Given Ketorolac Tromethamine (Toradol) 15 mg IV Q6H PRN PRN PRN Reason: MILD-MOD PAIN (1-5/10) Morphine Sulfate () 2 - 4 mg IV Q2H PRN PRN PRN Reason: SEVERE PAIN (6-10/10) Morphine Sulfate () 2 - 4 mg IV Q2H PRN PRN PRN Reason: SEVERE PAIN (6-10/10) Multivitamins (Multivitamin) 1 tablet PO DAILY@0800 [facility] Nutritional Formula (Lactose Free) (Ensure Clear) 120 ml PO TIDCM [facility] Last Admin: 09/23/18 19:44 Dose: Not Given Ondansetron HCl (Zofran) 4 mg IV Q8H PRN PRN PRN Reason: NAUSEA Oxycodone HCl (Oxyir) 5 - 10 mg PO Q4H PRN PRN PRN Reason: MOD-SEVERE PAIN (4-10/10) Promethazine HCl (Phenergan) 12.5 mg IM Q6H PRN PRN; Protocol PRN Reason: NAUSEA/VOMITING Rivaroxaban (Xarelto) 10 mg PO DAILY@0800 [facility] Senna/Docusate Sodium (Senokot-S, Noni-Colace) 2 tablet PO BID [facility] Sodium Chloride () 5 - 30 ml IV UD PRN PRN Reason: SALINE FLUSH Medical Necessity - Tobacco Use Smoking Status: Never smoker Assessment/Plan All Active Problems Infected prosthetic knee joint (Acute) Patient who had removal of Antibiotic Spacer of left knee and with subsequent Left Total Knee Arthroplasty noted to have decrease respiration rate. Post operative acute respiratory failure Patient noted to have intermittent bradypnea and requiring venturi mask to maintain appropriate oxygen saturation Continue Ventimask for now. If patient continues to have decreased respiration will consider AVAP Her decreased respiratory drive is likely secondary due to sedation and pain medication during surgery. Hold all narcotic pain medication for tonight. Removal of Antibiotic Spacer left knee with placement of Left Total Knee Arthroplasty Orthopedic to follow. DVT prophylaxis Per orthopedic protocol Code Visit Inpatient E&M: [address] [place] [id number]
--- NOTE | 2018-09-23 20:52 | PN_ITS ---
Subjective: Hospitalist Consult Note. Patient had a Removal of Antibiotic Spacer left knee with placement of Left Total Knee Arthroplasty. After the procedure patient was noted to have decreased respiration and was placed on 31% Venturi mask with 6 L of oxygen at rest she was satting close to 100%. Hospitalist service is consulted because of decreased respiration. Patient denies any symptoms at this time. Her family reports that at home she snores but denies any apnea movements. Vitals/I&O's: Vital Signs Temp Pulse Resp BP Pulse Ox 97.6 F L 80 18 136/93 H 96 09/23/18 19:06 09/23/18 19:06 09/23/18 19:06 09/23/18 19:06 09/23/18 19:45 Oxygen Flow Rate (L/min) 3 Oxygen Delivery Method Venturi Mask Weight: 67.4 kg Body Mass Index (BMI) 43.4 Intake and Output for Last 24 Hours 09/21/18 09/22/18 09/23/18 23:59 23:59 23:59 Intake Total 2500 / 2500 Balance 2500 / 2500 General: Alert, Oriented x3, Lethargic - Occasionally falls to sleep well conversation is ongoing. HEENT: Atraumatic, PERRLA, EOMI, Normocephalic Neck: Supple, No JVD, Negative Carotid Bruits Lungs: Clear to auscultation, Normal air movement Cardiovascular: Regular rate - at the time of my examination. Reportedly she has episodes of bradypnea., No murmurs Abdomen: Bowel Sounds Present, Soft, Non Tender Extremities: No edema, Capillary Refill Less than 3 Seconds Skin: No rashes, No breakdown Musculoskeletal: No Tenderness to Palpation of Joints or Extremities - Left knee with ice. Neurological: Cranial nerves II-XII grossly intact Psych/Mental Status: Normal Affect, Appropriate Current Medications Acetaminophen (Tylenol) 1,000 mg PO Q8 [facility] Famotidine (Pepcid) 20 mg PO DAILY [facility] Cefazolin Sodium () 1 gm in 50 mls @ 150 mls/hr IV Q8 QUAN Stop: 09/24/18 06:19 Lactated Ringer's () 1,000 mls @ 125 mls/hr IV .Q8H [facility] Last Admin: 09/23/18 19:44 Dose: Not Given Ketorolac Tromethamine (Toradol) 15 mg IV Q6H PRN PRN PRN Reason: MILD-MOD PAIN (1-5/10) Morphine Sulfate () 2 - 4 mg IV Q2H PRN PRN PRN Reason: SEVERE PAIN (6-10/10) Morphine Sulfate () 2 - 4 mg IV Q2H PRN PRN PRN Reason: SEVERE PAIN (6-10/10) Multivitamins (Multivitamin) 1 tablet PO DAILY@0800 [facility] Nutritional Formula (Lactose Free) (Ensure Clear) 120 ml PO TIDCM [facility] Last Admin: 09/23/18 19:44 Dose: Not Given Ondansetron HCl (Zofran) 4 mg IV Q8H PRN PRN PRN Reason: NAUSEA Oxycodone HCl (Oxyir) 5 - 10 mg PO Q4H PRN PRN PRN Reason: MOD-SEVERE PAIN (4-10/10) Promethazine HCl (Phenergan) 12.5 mg IM Q6H PRN PRN; Protocol PRN Reason: NAUSEA/VOMITING Rivaroxaban (Xarelto) 10 mg PO DAILY@0800 [facility] Senna/Docusate Sodium (Senokot-S, Noni-Colace) 2 tablet PO BID [facility] Sodium Chloride () 5 - 30 ml IV UD PRN PRN Reason: SALINE FLUSH Medical Necessity - Tobacco Use Smoking Status: Never smoker Assessment/Plan All Active Problems Infected prosthetic knee joint (Acute) Patient who had removal of Antibiotic Spacer of left knee and with subsequent Left Total Knee Arthroplasty noted to have decrease respiration rate. Post operative acute respiratory failure Patient noted to have intermittent bradypnea and requiring venturi mask to maintain appropriate oxygen saturation Continue Ventimask for now. If patient continues to have decreased respiration will consider AVAP Her decreased respiratory drive is likely secondary due to sedation and pain medication during surgery. Hold all narcotic pain medication for tonight. Removal of Antibiotic Spacer left knee with placement of Left Total Knee Arthroplasty Orthopedic to follow. DVT prophylaxis Per orthopedic protocol Code Visit Inpatient E&M: [address] [place] [id number]
--- NOTE | 2018-09-23 21:21 | NURSING ---
Continuous pulse ox placed on pt as nursing measure. Pt awakened easily. Pt's sister still present in room.
[2018-09-23] MEDS: Lactated Ringers 1,000 ML 125 ML IV (22:21)
[2018-09-23] MEDS: Cefazolin 1 GM/50 ML BAG IV (22:22)
[2018-09-23] MEDS: Senna/Docusate Sodium 1 Tablet 2 TABLET PO (22:22)
[2018-09-24] VITALS (9 sets, daily range): BP systolic 117–163; BP diastolic 56–84; PULSE 83–112; RESP 14–20; TEMP 36.7–37.1; O2SAT 87–100
[2018-09-24 05:09] LABS: Hematocrit 29.4 % (37-47); Hemoglobin 9.5 g/dl (12.0-15.0); Mean Corp Hgb Conc 32.3 g/gl (32-36); Mean Corpuscular Hgb 30.7 pg (27.0-32.0); Mean Corpuscular Volume 95.1 fL (81-99); Mean Platelet Vol. 8.4 fl (6.2-12.0); Platelet Count 232 K/mm3 (150-450); RBC Distribution Width CV 13.5 % (11.6-14.6); RBC Distribution Width SD 44.8 fl (35.1-43.9); Red Blood Count 3.09 M/mm3 (4.2-5.4); Scan Indicated on CBC? Y/N NO; White Blood Count 10.5 K/mm3 (4.4-11.0)
[2018-09-24 05:33] LABS: Anion Gap 7 (5-15); BUN 14 mg/dL (7-18); BUN/Creat Ratio 17.1 RATIO (10-20); Calcium,Total 7.8 mg/dL (8.5-10.1); Chloride 106 mmol/L (98-107); Creatinine, Serum 0.82 mg/dL (0.55-1.02); EST Glomerular Filtration Rate 76 mL/min (>60); Est Glom Filt Rate - Afr Amer 92 mL/min (>60); Estimated Creatinine Clearance 81.88 ml/min; Glucose 129 mg/dL (74-106); Potassium 4.2 mmol/L (3.5-5.1); Sodium Level 142 mmol/L (136-145)
[2018-09-24] MEDS: Cefazolin 1 GM/50 ML BAG IV (06:02)
[2018-09-24] MEDS: Acetaminophen 500 MG Tablet 1000 MG PO ×3 (06:03→21:45)
[2018-09-24] MEDS: 0.9% NaCl Peripheral Flush Adult/Peds IV ×2 (06:22→21:44)
--- NOTE | 2018-09-24 08:09 | PN.ORTHO_ITS ---
Subjective: The patient was sitting in bed upon examination. Patient denies any chest pain, shortness of breath, dizziness, lightheadedness, nausea or vomiting, or calf pain. Pain is controlled on medications. No adverse overnight events. Overnight medicine was consulted due to low respirations. Patient was placed on ventilation and is currently on 2 L of nasal oxygen. Patient currently denies any chest pain, shortness of breath, or calf pain. Patient did have episode of vomiting this morning. She currently does not complain of any nausea. Her pain has been controlled. Narcotics were stopped overnight due to respiration problems. Objective: Vital signs stable and afebrile, currently on 2 L oxygen with O2 saturation 94% Patient is able to plantarflex and dorsiflex actively. Sensation is intact to light touch to saphenous, sural, superficial and deep peroneal, and tibial distribution. Dressing is clean dry and intact. Negative Homans bilaterally, negative signs and symptoms of DVT. - Physical Exam General: Alert, Oriented x3, Cooperative, No apparent distress Vital Signs Temp Pulse Resp BP Pulse Ox 98.7 F 83 14 129/66 H 94 09/24/18 03:00 09/24/18 03:00 09/24/18 03:00 09/24/18 03:00 09/24/18 06:48 Oxygen Flow Rate (L/min) 2 Oxygen Delivery Method Nasal Cannula Weight: 68.521 kg Body Mass Index (BMI) 44.2 Intake and Output for Last 24 Hours 09/22/18 09/23/18 09/24/18 23:59 23:59 23:59 Intake Total 2500 / 2500 1871 / 1871 Output Total 500 / 500 Balance 2500 / 2500 1371 / 1371 Laboratory Tests Past 24 Hrs 09/24/18 09/24/18 04:56 04:56 WBC 10.5 RBC 3.09 L Hgb 9.5 L Hct 29.4 L MCV 95.1 MCH 30.7 MCHC 32.3 RDW 13.5 RDW Differential 44.8 H Plt Count 232 MPV 8.4 Sodium 142 Potassium 4.2 Chloride 106 Carbon Dioxide 29.0 Anion Gap 7 BUN 14 Creatinine 0.82 Estim Creat Clear Calc 81.88 Est GFR (MDRD) Af Amer 92 Est GFR (MDRD) Non-Af 76 BUN/Creatinine Ratio 17.1 Glucose 129 H Calcium 7.8 L Medical Necessity - Tobacco Use Smoking Status: Never smoker Assessment/Plan All Active Problems Infected prosthetic knee joint (Acute) 1. S/P left knee removal antibiotic spacer with placement of left total knee arthroplasty POD #1 2. Continue Pain Medications: Currently on Tylenol, narcotics have been held due to respiratory problems overnight. 3. DVT Prophylaxis: Xarelto times 2 weeks, will then switch over to 81 mg aspirin twice daily for an additional 2 weeks at her 2-week follow-up 4. PT/OT: Weightbearing as tolerated, range of motion restrictions: We will keep range of motion from 0-90 degrees for the first 2 weeks, after 2 weeks p rogress as tolerated. 5. H & H: 9.5/29.4, asymptomatic 6. Continue postoperative medical management per medicine: Currently being treated for postoperative acute respiratory failure likely secondary to sedation and pain medication. 7. Encouraged Incentive Spirometry 8. Disposition: Plan will be for discharge home when medically ready.
--- NOTE | 2018-09-24 09:12 | PN_ITS ---
Subjective: Chief complaint: Follow-up after consultation for postoperative hypoxia. Patient seen and examined. No acute events overnight. She states that her left knee pain is around 2 out of 10 in severity. She denied chest pain or shortness of breath. She denied cough or sputum production. Reportedly, her pulse ox came down to 88% of oxygen but on oxygen, she has been 100%. Other vital signs are stable. - Physical Exam General: Alert, Oriented x3, Cooperative, No apparent distress HEENT: Atraumatic, PERRLA Oral: Moist Mucosa, No Gingival or Mucosal Lesions/ Ulcerations Neck: Supple, No JVD, Negative Carotid Bruits, Thyroid Normal Size and Texture Lungs: Clear to auscultation, No rhonchi, No wheeze, No rales, Diminished Cardiovascular: Regular rate, Regular Rhythm, Normal S1, Normal S2, PMI Normal Abdomen: Bowel Sounds Present, Soft, Non Tender, Non-Distended, No Hepato- splenomegaly Extremities: No clubbing, No cyanosis, No edema Skin: No rashes, No breakdown Lymphatic: No Cervical, Supraclavicular, or Inguinal Adenopathy Neurological: Cranial nerves II-XII grossly intact, Neuro grossly intact Psych/Mental Status: Normal Affect, Appropriate, Alert and oriented to time, place, person, mood and affect Vital Signs Temp Pulse Resp BP Pulse Ox 98.7 F 83 14 129/66 H 94 09/24/18 03:00 09/24/18 03:00 09/24/18 03:00 09/24/18 03:00 09/24/18 06:48 Oxygen Flow Rate (L/min) 2 Oxygen Delivery Method Nasal Cannula Weight: 151 lb 1 oz Body Mass Index (BMI) 44.2 Intake and Output for Last 24 Hours 09/22/18 09/23/18 09/24/18 23:59 23:59 23:59 Intake Total 2500 / 2500 1871 / 1871 Output Total 510 / 510 Balance 2500 / 2500 1361 / 1361 Laboratory Tests Past 24 Hrs 09/24/18 09/24/18 04:56 04:56 WBC 10.5 RBC 3.09 L Hgb 9.5 L Hct 29.4 L MCV 95.1 MCH 30.7 MCHC 32.3 RDW 13.5 RDW Differential 44.8 H Plt Count 232 MPV 8.4 Sodium 142 Potassium 4.2 Chloride 106 Carbon Dioxide 29.0 Anion Gap 7 BUN 14 Creatinine 0.82 Estim Creat Clear Calc 81.88 Est GFR (MDRD) Af Amer 92 Est GFR (MDRD) Non-Af 76 BUN/Creatinine Ratio 17.1 Glucose 129 H Calcium 7.8 L Medical Necessity - Tobacco Use Smoking Status: Never smoker Assessment/Plan All Active Problems Infected prosthetic knee joint (Acute) This is a 58-year-old female patient admitted for removal of left knee antibiotic spacer and new left total knee replacement and I am seeing this patient in consultation for postoperative hypoxia. #1 status post removal of left knee antibiotic spacer/status post left knee replacement: Postoperative day 1. She is on Toradol and Tylenol for pain control. Apart from hypoxia, other vital signs are stable. Routine blood work remarkable for chronic anemia with stable hemoglobin. Orthopedic surgery is managing. #2 postoperative hypoxia: This is likely because of oversedation due to anesthetics. This morning, nursing staff reported that patient pulse ox 100% on 2 L but dropped down to 88% on room air without ambulation. Chronic underlying restrictive lung disease cannot be ruled out based on patient's size. Plan: Chest x-ray, encourage incentive spirometer, ambulate. #3 chronic anemia: Likely because of her blood loss during surgery, today's hemoglobin is 9.5 g/dL. No indication for blood transfusion, patient is asymptomatic. #4 DVT prophylaxis: Continue Xarelto. This note was generated with [employer] dictation software. It may contain incorrect words, spelling, and punctuation that were not noted in checking the note before signing. Code Visit Inpatient E&M: 71248 Subs Hosp L2
--- NOTE | 2018-09-24 09:19 | NURSING ---
pt ambulatory in hallway w/ therapy and walker-moving well, little pain-pox is 86% on room air and pt placed back on 2l n/c o2 when returned to room-pt denies SOB, chest pain
[2018-09-24] MEDS: Senna/Docusate Sodium 1 Tablet 2 TABLET PO ×2 (09:22→21:44)
[2018-09-24] MEDS: Famotidine 20 MG Tablet PO (09:23)
[2018-09-24] MEDS: Rivaroxaban 10 MG Tablet PO (09:23)
[2018-09-24] MEDS: Multivitamins,Therapeutic Tablet 1 TABLET PO (09:23)
--- NOTE | 2018-09-24 09:30 | NURSING ---
student jennifer also has this pt and she is getting vitals
--- NOTE | 2018-09-24 09:35 | RAD_ITS ---
STUDY: X-RAY CHEST REASON FOR EXAM: Female, 58 years old. Shortness of breath and dyspnea. TECHNIQUE: Single AP portable view of the chest. COMPARISON: None. FINDINGS: There is elevation of the right hemidiaphragm. The lungs are clear. There is no demonstrated pleural abnormality. Normal size heart. Normal mediastinum and prisca. Normal visualized pulmonary arteries. Normal visualized aortic arch and descending thoracic aorta. Normal visualized thoracic spine. Normal visualized ribs, clavicles, and shoulders. There is no demonstrated abnormality of the visualized soft tissue structures of the upper abdomen. RAD/Chest 1 View (Portable) IMPRESSION: Elevation of the left hemidiaphragm. The lungs are clear. Electronically Signed: Robert Henry MD at 13:50 EDT Tel [phone], Service support ,
--- NOTE | 2018-09-24 09:53 | NURSING ---
pt not using i.s. correctly, made aware via teach back method and is now effectively using device, holding inhaled breath to the count of 3 -o2 is down to 1l n/c and pt is 96 % on 1l, will wean brendon
--- NOTE | 2018-09-24 10:42 | CASEMGMT ---
RN MOLLY assessment. Intro role of CM to patient in room. Pt had surgical Removal of antibiotic delivery devise and LTKR. Sister in room with pt. PCP: Aishwarya Villalobos Specialist: Dr. Downey Pharmacy: [facility] [employer]. Insurance: [employer] Prescription coverage: none Living arrangements: One story home with sister DME: walker, crutches, wheelchair, BSC PT/OT: recommendation is for home health, however pt stating she plans to go to [place] for rehab starting Friday. She has transportation and family will assist her. JOSH BARNES spoke with pt re: PT/OT evaluation and recommendations. Sister states they will be able to assist her to outpt therapy. Also discussed calling Dr. Downey's office if unable to do outpt therapy and Home Health can be arranged. -Xarelto ordered in hospital. Pt had been on Xarelto x 12 days at home previous admission-paid through [facility] RX assist. Will not be able to use assist a second time and pt does not have prescription coverage. Xarelto savings card printed, not given to pt yet. Call to [facility]- rep states pt can have 30 day free trial with xarelto savings card, but 30 day supply needs to be ordered. DC PLAN: Home with outpt therapy in [place] starting Friday.
--- NOTE | 2018-09-24 15:18 | NURSING ---
This nurse is aware of Vital Signs taken by [facility] Students at approximately 1500.
[2018-09-24] MEDS: Ketorolac 15 MG/ML Vial IV (21:43)
[2018-09-25 02:00] VITALS: BP 130/68; PULSE 92; RESP 18; TEMP 36.8; O2SAT 94
[2018-09-25] MEDS: Acetaminophen 500 MG Tablet 1000 MG PO ×2 (06:12→13:04)
[2018-09-25 06:32] LABS: Hematocrit 30.6 % (37-47); Hemoglobin 9.8 g/dl (12.0-15.0); Mean Corpuscular Hgb 30.1 pg (27.0-32.0); Mean Corpuscular Volume 93.9 fL (81-99); Mean Platelet Vol. 8.9 fl (6.2-12.0); Platelet Count 233 K/mm3 (150-450); RBC Distribution Width CV 13.9 % (11.6-14.6); RBC Distribution Width SD 47.9 fl (35.1-43.9); Red Blood Count 3.26 M/mm3 (4.2-5.4); Scan Indicated on CBC? Y/N NO; White Blood Count 10.2 K/mm3 (4.4-11.0)
[2018-09-25 06:51] VITALS: O2SAT 91
--- NOTE | 2018-09-25 07:07 | PN.ORTHO_ITS ---
Subjective: The patient was sitting in bed upon examination. Patient denies any chest pain, shortness of breath, dizziness, lightheadedness, nausea or vomiting, or calf pain. Pain is controlled on medications. Patient has only been using Tylenol and states this has been controlling her pain. No adverse overnight events. Patient has had postoperative hypoxia likely secondary to over sedation to anesthetics. Patient currently denies any shortness of breath on examination. Patient denies any previous problems prior to this hospital admission. Objective: Vital signs stable and afebrile. Currently 94% on room air, breathing easily without respiratory distress Patient is able to plantarflex and dorsiflex actively. Sensation is intact to light touch to saphenous, sural, superficial and deep peroneal, and tibial distribution. Dressing is clean dry and intact. Negative Homans bilaterally, negative signs and symptoms of DVT. - Physical Exam General: Alert, Oriented x3, Cooperative, No apparent distress Vital Signs Temp Pulse Resp BP Pulse Ox 98.3 F 92 18 130/68 H 94 09/25/18 02:00 09/25/18 02:00 09/25/18 02:00 09/25/18 02:00 09/25/18 02:00 Oxygen Flow Rate (L/min) [ 2 AMBULATION with Oxygen] Oxygen Flow Rate (L/min) 2 Oxygen Delivery Method Room Air Weight: 68.521 kg Body Mass Index (BMI) 44.2 Intake and Output for Last 24 Hours 09/23/18 09/24/18 09/25/18 23:59 23:59 23:59 Intake Total 2500 / 2500 2171 / 2171 500 / 500 Output Total 1410 / 1410 850 / 850 Balance 2500 / 2500 761 / 761 -350 / -350 Microbiology Past 72 Hours 09/23/18 Unknown Gram Stain - Final Tissue - Knee Wound Culture - Preliminary No growth-Final to follow 09/23/18 Unknown Gram Stain - Final Tissue - Knee Wound Culture - Preliminary No growth-Final to follow 09/23/18 Unknown Gram Stain - Final Tissue - Knee Wound Culture - Preliminary No growth-Final to follow Laboratory Tests Past 24 Hrs 09/25/18 05:15 WBC 10.2 RBC 3.26 L Hgb 9.8 L Hct 30.6 L MCV 93.9 MCH 30.1 MCHC 32.0 RDW 13.9 RDW Differential 47.9 H Plt Count 233 MPV 8.9 Medical Necessity - Tobacco Use Smoking Status: Never smoker Assessment/Plan All Active Problems Infected prosthetic knee joint (Acute) 1. S/P left knee removal antibiotic spacer with placement of left total knee arthroplasty POD # 2. Continue Pain Medications: Currently on Tylenol, narcotics have been held due to postoperative hypoxia. 3. DVT Prophylaxis: Xarelto times 2 weeks, will then switch over to 81 mg aspirin twice daily for an additional 2 weeks at her 2-week follow-up 4. PT/OT: Weightbearing as tolerated, range of motion restrictions: We will keep range of motion from 0-90 degrees for the first 2 weeks, after 2 weeks progress as tolerated. 5. H & H: 9.8/30.6, asymptomatic 6. Continue postoperative medical management per medicine: Postoperative hypoxia. At this time appreciate any recommendations by medicine for discharge planning. 7. Encouraged Incentive Spirometry 8. Disposition: Orthopedically stable, plan will be for possible discharge home today if cleared by medicine. I did inform patient I would like her to follow- up with her primary care physician next week. At this time pain is been controlled on Tylenol. She will continue this for pain control. Avoid narcotics at this time. Prescriptions will be attached to chart.
--- NOTE | 2018-09-25 07:12 | PCM.DC.TKR ---
Discharge Diet: No Restrictions Discharge Activity: May Not Drive May shower in (days): 2 Ice area for (Minutes): 20 - every hour while awake. Weight Bearing Status: Weight bearing as tolerated Elevate: Operative Extremity Additional Activity Instructions:: Continue with Rico wrap for 2 weeks Call your doctor if your incision/area has: Continuous Slow Oozing, Sudden Increased Bleeding, Increased Pain/ Swelling, Increased Redness, Foul Smelling Discharge Call your doctor if you observe: Fever of 101 or Higher, Coldness, Increased Pain, Numbness or Tingling, Change in Color, Calf discomfort, Uncontrolled pain Remove Dressing in (days):: 3 - Okay to remove on September 28, 2018 Additional Instructions: Follow [facility] postop instructions Pain control: Use Tylenol extra strength 500 mg 2 tablets every 8 hours for pain control. Allergies/Adverse Reactions: Allergies diphenhydramine [From Benadryl] Allergy (Verified 09/07/18 12:37) Other SHAKING vancomycin Allergy (Verified 09/07/18 12:37) Rash Medications to take at Discharge Multivitamin [Daily Multiple Vitamin] 1 each PO DAILY 04/25/17 Acetaminophen [Tylenol] 1,000 mg PO Q8 #90 tab 09/25/18 Rivaroxaban [Xarelto] 10 mg PO DAILY@0800 #12 tab 09/25/18 traMADol [Ultram] 50 mg PO Q6H PRN PRN #20 tab 09/25/18 The following prescriptions were given: traMADol [Ultram] 50 mg PO Q6H PRN PRN #20 tab PRN Reason: Severe Pain (6-10/10) Acetaminophen [Tylenol] 1,000 mg PO Q8 #90 tab Rivaroxaban [Xarelto] 10 mg PO DAILY@0800 #12 tab Primary Care Physician: Aishwarya Villalobos MD [Primary Care Provider] - Please follow up with your Primary Care Physician in: Schedule follow-up with primary care physician next week Test Results: Test results from this visit will be discussed in further detail at your follow-up appointment, if applicable. Please Follow Up With: Physical Therapy [facility] When: 09/28/18 @ 9:00 am Please Follow Up With: Michael Fleming PA-C When: 10/07/18 @ 10:00 am
[2018-09-25 07:32] VITALS: BP 153/71; PULSE 75; RESP 18; TEMP 37.1; O2SAT 92
[2018-09-25 07:41] VITALS: O2SAT 95
[2018-09-25] MEDS: Multivitamins,Therapeutic Tablet 1 TABLET PO (07:43)
[2018-09-25] MEDS: Rivaroxaban 10 MG Tablet PO (07:44)
[2018-09-25] MEDS: Famotidine 20 MG Tablet PO (07:44)
[2018-09-25] MEDS: Senna/Docusate Sodium 1 Tablet 2 TABLET PO (07:44)
--- NOTE | 2018-09-25 08:35 | PN_ITS ---
Subjective: Chief complaint: Follow-up after consultation for postoperative hypoxia. Patient seen and examined. No acute events overnight. Today, she denies any complaints. Denies shortness of breath. Her pain is well controlled. Her vital signs are stable, pulse ox is maintained on room air at 92%. - Physical Exam General: Alert, Oriented x3, Cooperative, No apparent distress HEENT: Atraumatic, PERRLA, EOMI, Normocephalic Oral: Moist Mucosa, No Gingival or Mucosal Lesions/ Ulcerations Neck: Supple, No JVD, Negative Carotid Bruits, Trachea Midline, Thyroid Normal Size and Texture Lungs: Clear to auscultation, No rhonchi, No wheeze, No rales, Diminished Cardiovascular: Regular rate, Regular Rhythm, Normal S1, Normal S2, PMI Normal Abdomen: Bowel Sounds Present, Soft, Non Tender, Non-Distended, No Hepato- splenomegaly Extremities: No clubbing, No cyanosis, No edema Skin: No rashes, No breakdown Lymphatic: No Cervical, Supraclavicular, or Inguinal Adenopathy Neurological: Cranial nerves II-XII grossly intact, Neuro grossly intact Psych/Mental Status: Normal Affect, Appropriate Vital Signs Temp Pulse Resp BP Pulse Ox 98.7 F 75 18 153/71 H 95 09/25/18 07:32 09/25/18 07:32 09/25/18 07:32 09/25/18 07:32 09/25/18 07:41 Oxygen Flow Rate (L/min) [ 2 AMBULATION with Oxygen] Oxygen Flow Rate (L/min) 2 Oxygen Delivery Method Room Air Weight: 151 lb 1.007 oz Body Mass Index (BMI) 44.2 Intake and Output for Last 24 Hours 09/23/18 09/24/18 09/25/18 23:59 23:59 23:59 Intake Total 2500 / 2500 2171 / 2171 500 / 500 Output Total 1410 / 1410 850 / 850 Balance 2500 / 2500 761 / 761 -350 / -350 Microbiology Past 72 Hours 09/23/18 Unknown Gram Stain - Final Tissue - Knee Wound Culture - Preliminary No growth-Final to follow 09/23/18 Unknown Gram Stain - Final Tissue - Knee Wound Culture - Preliminary No growth-Final to follow 09/23/18 Unknown Gram Stain - Final Tissue - Knee Wound Culture - Preliminary No growth-Final to follow Laboratory Tests Past 24 Hrs 09/25/18 05:15 WBC 10.2 RBC 3.26 L Hgb 9.8 L Hct 30.6 L MCV 93.9 MCH 30.1 MCHC 32.0 RDW 13.9 RDW Differential 47.9 H Plt Count 233 MPV 8.9 Medical Necessity - Tobacco Use Smoking Status: Never smoker Assessment/Plan All Active Problems Infected prosthetic knee joint (Acute) This is a 58-year-old female patient admitted for removal of left knee antibiotic spacer and new left total knee replacement and I am seeing this patient in consultation for postoperative hypoxia. #1 status post removal of left knee antibiotic spacer/status post left knee replacement: Postoperative day 2. She is on doxycycline. Wound cultures are pending. She is on Toradol and Tylenol for pain control. Her vital signs are stable, pulse ox is stable on room air. Orthopedic surgery is on the case. From medical standpoint, patient can be discharged home. #2 postoperative hypoxia: This is likely because of oversedation due to anesthetics. Her pulse ox has been around 92% on room air, normal shortness of breath. Chest x-ray reviewed, no acute findings. #3 chronic anemia: Likely because of her blood loss during surgery, today's hemoglobin is 9.8 g/dL. No indication for blood transfusion, patient is asymptomatic. #4 DVT prophylaxis: Continue Xarelto. This note was generated with [employer] dictation software. It may contain incorrect words, spelling, and punctuation that were not noted in checking the note before signing. Code Visit Inpatient E&M: 28434 Subs Hosp L2
[2018-09-25] MEDS: Doxycycline 100 MG CAPSULE PO (09:50)
[2018-09-25] MEDS: traMADol 50 MG Tablet PO (09:52)
--- NOTE | 2018-09-25 11:23 | CASEMGMT ---
JOSH BARNES following up on Xarelto prescription and savings card. Xarelto 10mg not covered by savings card. JOSH BARNES spoke with LIZETTE Fleming and pharmacy and no other options available. Cost of Xarelto is $154.49. Patient updated regarding cost and circumstances for why not eligible to savings card. Patient voiced understanding.
[2018-09-25 12:00] VITALS: BP 177/80; PULSE 99; RESP 18; TEMP 36.8; O2SAT 95
[2018-09-25 13:49] VITALS: BP 177/80; PULSE 99; RESP 18; TEMP 36.8; O2SAT 95
== END 2018-09-25 13:49 | disposition home or self-care (01) | DRG 466 ==
LOC: ACINP 11:24 → MS3 14:43
PROVIDERS: Admitting Provider Specialist; Referring Provider Specialist; Visit Provider Specialist
PROC: 0SRD0J9 Replacement of Left Knee Joint with Synthetic Substitute, Cemented, Open Approach (ICD-10-PCS; principal; 2018-09-23 13:10)
DX: Z47.33 Aftercare following explantation of knee joint prosthesis (principal); J95.821 Acute postprocedural respiratory failure; Z89.522 Acquired absence of left knee
CPT/HCPCS: 36415; 71045; 73560; 80048; 85027; 87015; 87070; 87075; 87081; 87102; 87116; 87205; 87206; 94762; 97110; 97162; 97165; 97530; 97802; 99251; C1776; J7120; A4216; G0463; J2405